=== PATIENT | female | born 1960 | race Two or more races ===

== ENCOUNTER 2024-01-24 09:29 | Outpatient (RCR) | payer MEDICAID, SELFPAY ==
--- NOTE | 2024-03-04 23:22 | CTCFLWUP_ITS ---
Patient: MADELAINE CARTER : 1960 Page 3 of 4 FOLLOW UP NOTE DATE OF SERVICE: 01/24/2024 NAME: MADELAINE CARTER ACCOUNT: [id number] : 1960 AGE: 63 INTERVAL HISTORY: Patient is getting radiation and still complaining of headache ONCOLOGY HISTORY: DIAGNOSIS: Malignant neoplasm of temporal lobe (brain) [ICD10] C71.2 DATE OF DIAGNOSIS: 11/15/2023 STAGE/TNM: High-grade glial neoplasm TREATMENT HISTORY: Care?Plan Start?Date Cycle Day Intent HISTORY OF PRESENT ILLNESS: Patient is 63-year-old woman who was seen in the hospital on 11/11/2019 for with 3 days of headache. Brain scan showed 1 cm of midline shift imaging consistent with high-grade glioma. Patient has been having headache and nausea. She has been getting Decadron and is feeling hungry all the time. Her headache has improved since surgery but is still persistent. She was discharged on dexamethasone Keppra along with her other medications for her medical problems Oncology history 11/15/2023 Pathology showed right temporal mass finding consistent with a high-grade glial neoplasm IDH wild-typ e ATRX wild-type Prognostic molecular studies pending OTHER MEDICAL HISTORY/CONDITIONS: Glioblastoma - dx 11/21/23 Diabetic Hyperlipidemia Sleep Apnea Right temporal craniotomy - 11/11/23 @ [facility] [place] Cholecystectomy - 15yrs ago FRANCIS - 20yrs ago Gage hip replacements - 25yrs ago x 2 -1994; 1998 FAMILY HISTORY: Cancer History - Mother - Glioblastoma - dx age 68 SOCIAL HISTORY: 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 atorvastatin - 20 mg 1 tab Every day before sleep 2. dexamethasone - 1 mg 1 tab twice daily 3. dexamethasone - 2 mg 1 tab three times a day 4. DOK - 100 mg tab As directed 5. Farxiga - 10 mg 1 tab Daily 6. Fish Oil - 1,000 mg 1 Capsule Daily 7. Keppra - 500 mg 1 tab Twice a Day 8. magnesium - 250 mg 1 tab Daily 9. Mouthwash - As directed 10. ondansetron - 8 mg 1 tab every 8 hrs 11. Senna S - 50-8.6 mg 1 tab Daily 12. Temodar - 100 mg Capsule As directed 13. Temodar - 140 mg Capsule As directed 14. traMADol - 50 mg 1 tab q6 15. traZODone - 50 mg 1 tab Daily 16. Tylenol - 325 mg 2 tab As directed 17. Vitamin C - 1,000 mg 1 tab Daily Medications Last Reconciled by Teresa Elizabeth MA on 01/24/2024 ALLERGIES: Penicillins; erythromycin; hydrocodone bitartrate/homatropine REVIEW OF SYSTEMS: A complete 14-point review of systems was performed and is negative except as noted in interval histo ry. PHYSICAL EXAMINATION: VITAL SIGNS: Temperature?99.2, B/P?109/73, Oxygen?Saturation?97% PAIN: 4 - Moderate pain ECOG Performance Status: 3 - Symptomatic; limited self-care; spends >50% of time in bed, not bedridde n GENERAL APPEARANCE: Appears well, in no apparent distress, appropriately interactive. HEENT: Normocephalic, no temporal wasting, normal conjunctiva, no scleral icterus, normal hearing, li ps without lesions, neck normal range of motion. CARDIOVASCULAR: Not assessed. PULMONARY: Normal respiratory effort, no respiratory distress or use of accessory muscles, speaking i n full sentences, no tachypnea. EXTREMITIES: No pedal edema or cyanosis. SKIN: Normal skin appearance. NEUROLOGIC: Alert and oriented x4. PSHYCHIATRIC: Appropriate affect, mood normal, behavior normal, intact thought and speech. LABORATORY DATA: I have personally reviewed and interpreted each of the patient?s relevant lab tests, abnormal finding s are below: Date 02/10/24 ??WHITE?BLOOD?COUNT?(Thou/mm3) 7.6 ??RED?BLOOD?COUNT?(Miln/mm3) 4.82 ??HEMOGLOBIN?(gm/dl) 14.2 ??HEMATOCRIT?(%) 42.4 ??PLATELET?COUNT?(Thou/mm3) 163 ??NEUTROPHILS?%,?AUTO?(%) 81?H ??LYMPH?%,?AUTO?(%) 9?L ??NEUTROPHILS,?AUTO?(Thou/mm3) 6.2 ASSESSMENT/PLAN: Glioblastoma multiforme he Right temporal mass s/p resection WHO grade 4 MGMT status unknown ??Concurrent chemoradiation Patient will likely get 60 Russell radiation with a 2 Gy daily for about 6 weeks She will get concurrent Temodar and radiotherapy (75 mg/m? body surface area per day for 7 days/week from the first day to the last date of radiotherapy. It will be followed by 6 cycles of adjuvant tem ozolomide 150 mg/m? for 5 days during each 28-day cycle Patient's headache have not improved much. I will continue her dexamethasone Will get a brain MRI to see response to treatment Patient's last MRI was reviewed by her neurosurgeon at [place] and per family was not very convinced that she has recurrence after surgery I am concerned that patient may not be having a good response but will wait for completing radiation and dose imaging again Zofran for nausea Mag citrate for constipation RTC in 3 weeks for follow-up RETURN TO CLINIC: 2 weeks BILLING AND COMPLIANCE: I reviewed external records from providers outside my specialty as summarized above. I spent a total of 50 minutes on this patient?s care on the day of their visit excluding time spent related to any bi lled procedures. This time includes time spent with the patient as well as time spent documenting in the medical record, reviewing patients records and tests, obtaining history, placing orders, communi cating with other healthcare professionals, counseling the patient, family or caregiver, and/or care coordination for the diagnoses above. Electronically Signed by: Juan Arellano MD T: 11:19 PM CC: Pat?Lokesh,? PCP: Pat Campa Referring: Pat Campa This document was completed utilizing speech recognition software. Grammatical errors, random word in sertions, pronoun errors, and incomplete sentences are an occasional consequence of this system due t o software limitations, ambient noise, and hardware issues. Any formal questions or concerns about th e content, text or information contained within the body of this dictation should be directly address ed to the provider for clarification.
== END 2024-01-27 23:59 | disposition home or self-care (01) ==
LOC: SCTC 09:29
PROVIDERS: PCP Internal Medicine; Referring Provider Internal Medicine; Visit Provider Internal Medicine Hematology & Oncology
DX: Z51.0 Encounter for antineoplastic radiation therapy (principal); C71.2 Malignant neoplasm of temporal lobe; R51.9 Headache, unspecified; R11.0 Nausea; K59.00 Constipation, unspecified; E11.9 Type 2 diabetes mellitus without complications
CPT/HCPCS: 77336; 77385; 99212; G0463

== ENCOUNTER 2024-02-09 22:49 | Emergency (ER) | payer MEDICAID, SELFPAY ==
[2024-02-09 22:50] VITALS: BMI 24.7
[2024-02-09 23:32] VITALS: BP 127/84; PULSE 76; RESP 20; TEMP 36.7; O2SAT 95
--- NOTE | 2024-02-09 23:47 | XR_ITS ---
Examination: CT abdomen and pelvis without contrast. Coronal 3-D reconstructions. Sagittal 2-D reconstructions. Date and time of exam:February 09, 2024 2356 hrs. Comparison September 14, 2023, carcinoma diagnosis, onset right-sided abdominal pain radiating to the back beginning 4 days ago CTDI: vol (mGy): 8.38 DLP: (mGycm): 443 Technique: Axial images of the abdomen have been obtained, 3 mm slice thickness Intravenous contrast material has not been administered. Low dose protocols were performed. One or more of the following dose reduction techniques were used; automated exposure control, adjustment of the mA and/or KV according to patient size, use of iterative reconstruction technique. Findings: Pericardial effusion measuring up to 18 mm in thickness No focal liver or splenic lesions Absent gallbladder No pancreatic or adrenal mass Moderate bilateral renal parenchymal scar formation, no hydronephrosis Aorta normal size 23 mm fat-containing umbilical hernia Normal appendix Colonic diverticulosis, no diverticulitis No pelvic mass Urinary bladder intact Bilateral hip arthroplasties obscure detail in the pelvis Severe osteopenia Advanced degenerative disc disease lower 3 lumbar levels Impression: Pericardial effusion measuring up to 18 mm in thickness 23 mm fat-containing umbilical hernia Colonic diverticulosis, no diverticulitis
--- NOTE | 2024-02-09 23:47 | PD.EDRME ---
Rapid Medical Screening Exam RME Arrival date/time: 02/09/24 22:49 63-year-old female with past medical history [place] presents emergency department complaining of abdominal pain and constipation for several days. Chief Complaint: Abdominal Pain Time Seen by Provider: 02/09/24 23:33 Vital signs: Vital Signs Temperature 98.1 F 02/09/24 23:32 Pulse Rate 76 02/09/24 23:32 Respiratory Rate 20 02/09/24 23:32 Blood Pressure 127/84 02/09/24 23:32 Pulse Oximetry (%) 95 02/09/24 23:32 Oxygen Delivery Method Room Air 02/09/24 23:32 Vital signs reviewed by provider: Yes
[2024-02-10] MEDS: MG HYD/AL HYD/SIME (Maalox Reg) SUSP 30 ML UDC PO (00:07)
[2024-02-10] MEDS: LIDOCAINE VISCOUS 2% 15 ML UDC PO (00:07)
[2024-02-10 01:08] VITALS: BP 146/90; PULSE 72; RESP 17; TEMP 36.6; O2SAT 96
--- NOTE | 2024-02-10 01:20 | EDNOTE_ITS ---
ED Abdominal Pain RME/HPI General Chief Complaint: Abdominal Pain Stated complaint: R SIDE ABD PAIN HX CANCER Time seen by provider: 02/09/24 23:33 Arrival date/time: 02/09/24 22:49 RME / HPI RME / HPI narrative: 02/09/24 22:49 63-year-old female with past medical history [place] presents emergency department complaining of abdominal pain and constipation for several days. DR. KUHN MAIN ED EVALUATION: 63-year-old female patient with GBM diagnosed 3 months ago on chemotherapy and radiation complaining of abdominal pain and back pain. Her son at bedside states that the chemotherapy medication is making her constipated resulting in abdominal pain. Relieved by passing gas. Denies vomiting. Related Data Home Medications ?Medication ?Instructions ?Recorded ?Confirmed fexofenadine 180 mg tablet 180 mg PO QDAY #0 tabs 09/18/15 06/22/17 (Neela Allergy) omeprazole 20 mg capsule,delayed 20 mg PO QDAY ##0 09/18/15 06/22/17 release Previous Rx's ?Medication ?Instructions ?Recorded peg 3350-electrolytes 236 240 ml PO Q10M #4,000 mL 09/14/23 gram-22.74 gram-6.74 gram-5.86 gram solution (Golytely) Allergies Allergy/AdvReac Type Severity Reaction Status Date / Time hydrocodone Allergy Mild Rash Verified 11/10/23 12:02 Penicillins Allergy Mild Rash Verified 11/10/23 12:02 ERYTHROMYCINS Allergy Mild Rash Uncoded 09/14/23 12:07 Review of Systems Review of Systems Systems Reviewed: All systems reviewed, normal except as documented Narrative Review of Systems: GEN: No fever, no chills, no weight loss EYES: No discharge, no visual changes, no pain HEENT: No ear pain, no congestion, no sore throat PULM: No shortness of breath, no cough, no congestion CV: No chest pain, no dyspnea on exertion, no palpitations GI: No nausea, no vomiting, no diarrhea, + abdominal pain, + constipation : No frequency, no urgency and no dysuria MUSC/SKEL: No joint pain, + back pain SKIN: No rash PSYCH: No hallucinations, no depression HEME/LYMPH: No easy bleeding or bruising tendencies NEURO: No weakness, no headache Past Medical History Past Medical History CARDIAC: Positive Cardiac Disorders and Hypertension GASTROINTESTINAL: Positive Gastrointestinal Disorders and Gastroesophageal Reflux Disease ENDOCRINE: Positive Diabetes Mellitus Type 2 Surgical History SURGICAL: Positive Abdominal Surgery and Joint Replacement Social History SMOKING STATUS: Never smoker SUBSTANCE USE: does not use ALCOHOL: Never ED Exam Narrative Physical exam: GENERAL APPEARANCE: alert and oriented x 4, well-developed, well-nourished, no acute distress VITALS: All vitals were reviewed and the pulse ox is 96% on room air, which is normal according to my interpretation. HEENT: Normocephalic, atraumatic; pupils equal, round, reactive to light; EOMI; mucous membranes pink, moist; oropharynx clear NECK: Supple LUNGS: CTABL; no wheezes, no rales, no rhonchi HEART: Regular rate, regular rhythm; normal S1, S2; no murmurs ABDOMEN: non distended; normal BS; soft, no tenderness, no guarding, no rebound; no masses, no organomegaly, no hernia BACK: no CVA tenderness EXTREMITIES: atraumatic; no edema NEUROLOGIC: awake; alert and oriented x4; cranial nerves II-XII grossly intact; no focal sensory or motor deficits PSYCHIATRIC: appropriate mood and affect SKIN: warm, dry, normal color; no rashes Course Quality Measures none Orders Category Date Time Status Insert IV NOW Care 02/10/24 02:[address] abdomen pelvis wo con Stat Exams 02/09/24 23:47 Completed BNP [B-Type Natriuretic Peptide] Stat Lab 02/10/24 01:07 Completed CBC Stat Lab 02/09/24 23:47 Completed CMP [Comprehensive Metabolic Panel] Stat Lab 02/09/24 23:47 Completed Lipase Stat Lab 02/09/24 23:47 Completed Troponin I Stat Lab 02/10/24 01:07 Completed Urinalysis, C/S if Indicated Stat Lab 02/09/24 01:40 Completed Urine Culture Stat Lab 02/09/24 01:40 Received Lidocaine 2% Viscous [Xylocaine 2% Viscous] Med 02/09/24 23:47 Discontinued 15 ml PO X1 ONE Ondansetron Inj [Zofran Inj] Med 02/10/24 02:01 Discontinued 4 mg IV X1 ONE Sodium Chloride 0.9% 1000 ml [Ns] 1,000 ml Med 02/10/24 02:01 Discontinued IV 999 mls/hr fentaNYL INJ [Sublimaze Inj] Med 02/10/24 02:01 Discontinued 100 mcg IVP X1 ONE fentaNYL INJ [Sublimaze Inj] Med 02/10/24 03:16 Discontinued 50 mcg IVP X1 ONE mg Hyd/Al Hyd/Reji Susp [Maalox Susp] Med 02/09/24 23:47 Discontinued 30 ml PO X1 ONE Reevaluation(s) Reevaluation #1: Patient remains clinically stable throughout the emergency department visit. Re- assessment at the time of disposition demonstrates that the patient is in no acute distress. We reviewed all the results, analysis, and treatment plans. Patient is amenable to discharge. Strict return precautions were outlined. Patient was discharged in stable condition. Time: 02:30 Vital Signs Vital signs: Vital Signs Temperature 98.1 F 02/09/24 23:32 Pulse Rate 76 02/09/24 23:32 Respiratory Rate 20 02/09/24 23:32 Blood Pressure 127/84 02/09/24 23:32 Pulse Oximetry (%) 95 02/09/24 23:32 Oxygen Delivery Method Room Air 02/09/24 23:32 Abdominal Pain MDM MDM Narrative MDM Narrative:: IBerta am scribing for and in the presence of Dr. Kuhn. Patient data External records reviewed:: [facility] previous records (Reviewed last ED visit dated 01/29/24, discharged with the following: Malignant neoplasm of temporal lobe.) Clinical information provided by:: patient Social determinants that could affect healthcare access:: none Patient has the following chronic illnesses:: GBM diagnosed 3 months ago on chemotherapy and radiation. Also hypertension, GERD, and diabetes. How is presenting disease/condition affected by chronic disease/condition?: exacerbated by Evaluation data The following diagnostics were reviewed and interpreted by me:: lab results and radiology exam(s) Lab and/or radiology exams considered but not ordered:: none Interpretation Summary: Procedure(s): CT abdomen pelvis wo con Accession Number(s): [id number] cc: Pat Campa MD; Jatin Burrell MD; Syeda Jose (SONAL)Nitin~ Examination: CT abdomen and pelvis without contrast. Coronal 3-D reconstructions. Sagittal 2-D reconstructions. Date and time of exam:February 09, 2024 2356 hrs. Comparison September 14, 2023, carcinoma diagnosis, onset right-sided abdominal pain radiating to the back beginning 4 days ago CTDI: vol (mGy): 8.38 DLP: (mGycm): 443 Technique: Axial images of the abdomen have been obtained, 3 mm slice thickness Intravenous contrast material has not been administered. Low dose protocols were performed. One or more of the following dose reduction techniques were used; automated exposure control, adjustment of the mA and/or KV according to patient size, use of iterative reconstruction technique. Findings: Pericardial effusion measuring up to 18 mm in thickness No focal liver or splenic lesions Absent gallbladder No pancreatic or adrenal mass Moderate bilateral renal parenchymal scar formation, no hydronephrosis Aorta normal size 23 mm fat-containing umbilical hernia Normal appendix Colonic diverticulosis, no diverticulitis No pelvic mass Urinary bladder intact Bilateral hip arthroplasties obscure detail in the pelvis Severe osteopenia Advanced degenerative disc disease lower 3 lumbar levels Impression: Pericardial effusion measuring up to 18 mm in thickness 23 mm fat-containing umbilical hernia Colonic diverticulosis, no diverticulitis Dictated By: Jatin Burrell MD Medications / Prescriptions Medications or Prescriptions considered but not ordered:: none Medication administrations:: Medication Administration History Discontinued Medications Al Hydrox/Mg Hydrox/Simethicone (Mg Hyd/Al Hyd/Reji (Maalox Reg) Susp 30 Ml Udc) 30 ml PO X1 ONE Stop: 02/09/24 23:48 Last Admin: 02/10/24 00:07 Dose: 30 ml Documented By: CB Fentanyl Citrate (Fentanyl Cit Inj 50 Mcg/Ml Amp 2ml) 100 mcg IVP X1 ONE Stop: 02/10/24 02:02 Last Admin: 02/10/24 02:17 Dose: 50 mcg Documented By: CVL Comments: ONLY 50MCG GIVEN Fentanyl Citrate (Fentanyl Cit Inj 50 Mcg/Ml Amp 2ml) 50 mcg IVP X1 ONE Stop: 02/10/24 03:17 Last Admin: 02/10/24 03:22 Dose: 50 mcg Documented By: CVL Sodium Chloride (Ns) 1,000 mls @ 999 mls/hr IV .Q1H1M ONE Stop: 02/10/24 03:01 Last Infusion: 02/10/24 03:15 Dose: Infused Documented By: Admin: 02/10/24 02:15 Dose: 999 mls/hr Documented By: CVL Lidocaine HCl (Lidocaine Viscous 2% 15 Ml Udc) 15 ml PO X1 ONE Stop: 02/09/24 23:48 Last Admin: 02/10/24 00:07 Dose: 15 ml Documented By: NAYAN Ondansetron HCl (Ondansetron Inj 2 Mg/Ml Inj 2 Ml) 4 mg IV X1 ONE Stop: 02/10/24 02:02 Last Admin: 02/10/24 02:16 Dose: 4 mg Documented By: CVL see above Consultations Consultation(s) initiated? (list below): No Diagnosis Differential diagnosis abdominal pain: abdominal pain, constipation, small bowel obstruction and other (cancer) Most likely diagnosis given after review of the tests above:: Abdominal pain Admission Indicated Admission indicated?: not indicated Admission Request Was there a request for admission?: No Disposition Plan Disposition Plan: Discharge Discharge Attestation Discharge Attestation: The patient and all family members were given an opportunity to ask questions and understood the discharge instructions. Discharge instructions specifically effects, indications for sooner follow up or return to the emergency department, and the expected course of current diagnosis. Patient condition: Stable Discharge Plan Plan Patient Disposition: HOME (Self Care) Prescriptions/Referrals Prescriptions/Med Rec: No Action fexofenadine [Neela Allergy] 180 MG tablet 180 mg PO QDAY Qty: 0 omeprazole 20 MG capsule,delayed release(DR/EC) 20 mg PO QDAY Qty: 0 peg 3350-electrolytes [Golytely] 236-22.74-6.74 -5.86 gram recon soln 240 ml PO Q10M Qty: 4000 0RF Rx Instructions: until fecal effluent is clear Problem List Clinical Impression: Abdominal pain Patient/Caregiver Discharge Instructions Education Materials: ED Abdominal Pain Unkn Cause Fem Print Language: Panjabi (Arvind) Stand Alone Forms: Pilar Award Info., Patient Portal Info Letter
[2024-02-10 01:21] LABS: Collection Type, Urine Clean Catch
--- NOTE | 2024-02-10 01:40 | PRELIM_ITS ---
CT scan of the abdomen and pelvis without intravenous contrast (axial sections with sagittal and brianne nal reformats) February 09, 2024 2356 hours Clinical History: Abdominal pain No prior study is availa ble for comparison. Findings:Bibasilar atelectasis is seen. There is a small right pleural effusion. There is moderate pericardial effusion. The gallbladder is surgically absent. The liver, pancreas, sp karo, kidneys and adrenals are unremarkable on this noncontrast study.No evidence of bowel obstructio n. There are colonic diverticula without evidence of diverticulitis. The appendix is within normal li mits (images [id number]). There is no mesenteric or retroperitoneal adenopathy.There is a small vent ral hernia containing omental fat.The urinary bladder is unremarkable. There is no free fluid or free air. A moderate amount of fecal material is present in the colon. There are atheromatous changes of the abdominal aorta and its visceral branches. Degenerative changes are identified in the spine. Th ere are bilateral total hip replacement.Impression:Colonic diverticula without evidence of diverticul itis. Small ventral hernia containing omental fat.Other findings as described above. Report Elec tronically Signed By: Tyrel Abel 02/10/2024 1:39:43 AM [EST]
[2024-02-10 01:55] LABS: Basophils % (Auto) 0 % (0-2.5); Eosinophils # (Auto) 0.1 Thou/mm3 (0.0-0.5); Eosinophils % (Auto) 1 % (0-10); Hematocrit 42.4 % (36.0-46.0); Hemoglobin 14.2 g/dL (12.0-16.0); Immature Granulocytes % (Auto) 1 % (0-0); Immature Granulocytes Auto 0.08 Thou/mm3 (0.00-0.00); Lymphocytes # (Auto) 0.7 Thou/mm3 (1.0-4.8); Lymphocytes % (Auto) 9 % (10-50); Mean Corpuscular HGB Conc 33.5 g/dl (31.0-37.0); Mean Corpuscular Hemoglobin 29.5 pg (25.0-35.0); Mean Corpuscular Volume 88 fL (80-100); Monocytes # (Auto) 0.6 Thou/mm3 (0.0-0.8); Monocytes % (Auto) 8 % (0-12); Neutrophils # (Auto) 6.2 Thou/mm3 (1.8-7.7); Neutrophils % (Auto) 81 % (37-80); Nucleated Red Blood Cell % 0 /100 WBC (0); Platelet Count 163 Thou/mm3 (140-440); RDW Standard Deviation 53.1 fL (36.4-46.3); Red Blood Count 4.82 Miln/mm3 (4.00-5.20); White Blood Count 7.6 Thou/mm3 (3.6-11.0)
[2024-02-10 02:01] LABS: Bilirubin,Urine Negative (Negative); Blood,Urine Negative (Negative); Clarity,Urine Clear (Clear/Hazy); Color,Urine Lt-Yellow (Lt Yel-Yel); Culture Indicated,Urine Yes; Glucose, Urine 4+ (Negative); Ketones,Urine Negative (Negative); Leukocyte Esterase,Urine Negative (Negative); Nitrite,Urine Positive (Negative); PH,Urine 6.5 (5.0-7.0); Protein,Urine Negative (Neg - Trace); RBC,Urine 2 /hpf (0-3); Specific Gravity,Urine 1.034 (1.001-1.035); Squamous Epithelial Cell,Urine < 1 /hpf (0-5); Urobilinogen,Urine Negative mg/dL (0.0-1.0); WBC,Urine 3 /hpf (0-5)
[2024-02-10 02:07] LABS: Alanine Aminotransferase 17 U/L (10-49); Albumin, Serum 3.9 gm/dL (3.4-4.8); Alkaline Phosphatase 36 U/L (46-116); Anion Gap 8 (7-16); Aspartate Amino Transferase 11 U/L (0-34); BUN/Creatinine Ratio 26 Ratio (12-20); Bilirubin,Total 0.3 mg/dL (0.3-1.2); Blood Urea Nitrogen 21 mg/dL (9-23); Calcium 10.5 mg/dL (8.3-10.6); Calcium (Corrected) 10.6 mg/dL (8.5-10.1); Carbon Dioxide 25.2 mMol/L (20.0-31.0); Chloride 101 mMol/L (98-107); Creatinine (Component) 0.8 mg/dL (0.6-1.3); Estimated Creatinine Clearance 63.7 mL/min (>60); Glucose 234 mg/dL (74-106); Lipase 40 U/L (12-53); Osmolality,Calculated 279 (275-295); Sodium 134 mMol/L (136-145); Total Protein 5.9 gm/dL (5.7-8.2); eGFR > 60 See Note
[2024-02-10] MEDS: SODIUM CHLORIDE 0.9% 1000 ML 1,000 ML 999 ML IV (02:15)
[2024-02-10] MEDS: ONDANSETRON INJ 2 MG/ML INJ 2 ML 4 MG IV (02:16)
[2024-02-10] MEDS: fentaNYL CIT INJ 50 mCg/ML AMP 2ML 100 MCG IVP (02:17)
[2024-02-10 03:04] LABS: B-Type Natriuretic Peptide 30 pg/mL (0-100); Troponin I < 0.020 ng/mL (0.0-0.045)
[2024-02-10] MEDS: fentaNYL CIT INJ 50 mCg/ML AMP 2ML IVP (03:22)
[2024-02-10 04:04] VITALS: RESP 18
== END 2024-02-10 04:04 | disposition home or self-care (01) ==
LOC: SERX 02-10 04:09
PROVIDERS: Emergency Provider Emergency Medicine; PCP Internal Medicine
DX: K57.30 Diverticulosis of large intestine without perforation or abscess without bleeding (principal); K42.9 Umbilical hernia without obstruction or gangrene; I31.39 Other pericardial effusion (noninflammatory)
CPT/HCPCS: 36415; 74176; 80053; 81001; 83690; 83880; 84484; 85025; 87077; 87086; 87186; 96361; 96374; 96375; 96376; 99284; J2405; J3010; J3490; J7030; A9270

== ENCOUNTER 2024-02-14 09:36 | Outpatient (RCR) | payer MEDICAID, SELFPAY ==
--- NOTE | 2024-01-29 12:31 | CTCTRTNOTE_ITS ---
[facility] [address] [place], [place] [address] Weekly Management Date: 01/29/2024 ?? Name: MADELAINE EMMA DonahueB.: 1960 A. Patient is currently at 5400 cGy. Getting concurrent Temodar and radiation. B. Patient is complaining of discomfort left ear. Significant earwax noted. Recommended using Debro x may need flushing later. C. Resume radiation therapy. Electronically signed by: Roderick Kaufman M.D. 01/29/2024 12:28 PM
== END 2024-02-27 23:59 | disposition home or self-care (01) ==
LOC: SCTC 09:36
PROVIDERS: PCP Internal Medicine; Referring Provider Internal Medicine; Visit Provider Radiology Therapeutic Radiology
DX: Z51.0 Encounter for antineoplastic radiation therapy (principal); C71.2 Malignant neoplasm of temporal lobe
CPT/HCPCS: 77336; 77385; 99212; G0463